=== PATIENT | female | born 1985 | race African-American/Black ===

== ENCOUNTER 2018-07-17 12:44 | Emergency (ER) | payer OTHER ==
[~2018-07-17] VITALS: Ht 177.8 cm; Wt 74.8 kg
[2018-07-17 13:25] LABS: ABSOLUTE NEUTROPHILS 3.3 thou/uL (1.4-8.2); BASOPHILS 0.8 % (0.0-2.0); EOSINOPHILS 1.6 % (0.0-3.0); HEMATOCRIT 40.6 % (37.0-47.0); HEMOGLOBIN 13.9 gm/dL (12.0-15.0); MCH 31.8 pg (26.0-34.0); MCHC 34.2 g/dL (28.0-37.0); MONOCYTES 9.7 % (1.0-8.0); PLATELET COUNT 176 thou/uL (150-400); POLYS 54.9 % (36.0-66.0); RBC 4.37 mil/uL (4.20-5.00); RDW 12.7 % (10.5-14.5); WBC 5.9 thou/uL (4.0-11.0)
[2018-07-17 13:27] LABS: URINE BILIRUBIN NEGATIVE (Negative); URINE BLOOD TRACE (Negative); URINE CLARITY CLEAR; URINE COLOR YELLOW; URINE GLUCOSE-RANDOM* NEGATIVE (Negative); URINE KETONES NEGATIVE (Negative); URINE LEUKOCYTES-REFLEX NEGATIVE (Negative); URINE NITRITE-REFLEX NEGATIVE (Negative); URINE PROTEIN (DIPSTICK) NEGATIVE (Negative); URINE SPECIFIC GRAVITY >= 1.030 (1.005-1.035); URINE UROBILINOGEN 0.2 E.U./dl (0.2-1.0)
[2018-07-17 13:29] LABS: ANION GAP 11 mmol/L (7-16); BUN 12 mg/dL (7-18); CHLORIDE 105 mmol/L (98-107); CO2 22 mmol/L (21-32); CREATININE 0.7 mg/dL (0.6-1.0); GLUCOSE 93 mg/dL (74-106); POTASSIUM 3.8 mmol/L (3.5-5.1); SODIUM 138 mmol/L (136-145)
[2018-07-17 13:35] LABS: ALBUMIN 3.6 g/dL (3.4-5.0); DIRECT BILIRUBIN < 0.1 mg/dL (<0.1-0.3); LIPASE 84 U/L (73-393); SGOT 13 U/L (15-37); SGPT 14 U/L (30-65); TOTAL BILIRUBIN 0.4 mg/dL (<0.1-1.0); TOTAL PROTEIN 7.6 g/dL (6.4-8.2)
[2018-07-17 15:13] VITALS: BP 139/91
== END 2018-07-17 15:14 | disposition home or self-care (01) ==
LOC: ER 12:44
PROVIDERS: Emergency Medicine
DX: R10.12 Left upper quadrant pain (principal); Z90.49 Acquired absence of other specified parts of digestive tract

== ENCOUNTER 2020-04-30 16:13 | Emergency (ER) | payer OTHER ==
[~2020-04-30] VITALS: Ht 165.1 cm; Wt 78.9 kg
[2020-04-30 21:17] LABS: ABSOLUTE NEUTROPHILS 3.3 thou/uL (1.4-8.2); BASOPHILS 0.5 % (0.0-2.0); EOSINOPHILS 2.1 % (0.0-3.0); HEMATOCRIT 42.5 % (37.0-47.0); HEMOGLOBIN 14.3 gm/dL (12.0-15.0); LYMPHOCYTES 31.8 % (24.0-44.0); MCH 31.6 pg (26.0-34.0); MCHC 33.6 g/dL (28.0-37.0); MCV 94.1 fL (80.0-100.0); PLATELET COUNT 240 thou/uL (150-400); POLYS 55.6 % (36.0-66.0); RBC 4.52 mil/uL (4.20-5.00); RDW 13.1 % (10.5-14.5); WBC 5.9 thou/uL (4.0-11.0)
[2020-04-30 21:24] LABS: CALCIUM 9.3 mg/dL (8.5-10.1); CREATININE 0.8 mg/dL (0.6-1.0); POTASSIUM 4.4 mmol/L (3.5-5.1)
[2020-04-30 21:30] LABS: ALBUMIN 3.9 g/dL (3.4-5.0); TOTAL BILIRUBIN 0.5 mg/dL (0.2-1.0); TOTAL PROTEIN 7.9 g/dL (6.4-8.2)
[2020-04-30 22:06] VITALS: BP 127/74
== END 2020-04-30 22:06 | disposition home or self-care (01) ==
LOC: ER 16:13
PROVIDERS: Emergency Medicine
DX: N83.292 Other ovarian cyst, left side (principal)